=== PATIENT | male | born 1970 | race Caucasian/White ===

== ENCOUNTER 2021-03-14 19:13 | Inpatient (IN) | payer OTHER ==
[2021-03-14] MEDS ORDERED: ASPIRIN 81 MG CHEWABLE TABLETS ONE (20:08)
[2021-03-14 20:10] LABS: BASO % 0.3 % (0-2.0); HEMATOCRIT 38.7 % (35.4-49); HEMOGLOBIN 12.7 GM/dL (11.7-16.9); LYMPH % 12.7 % (8-40); MCH 27.3 pg (25.7-33.7); MCHC 32.8 g/dl (32.0-35.9); MEAN CELL VOLUME 83.2 fl (80-96); MEAN PLT VOLUME 8.2 fl (7.5-11.1); MONO % 8.5 % (3.8-10.2); NEUT % 78.5 % (42.8-82.8); PLATELET COUNT 140 10^3/uL (134-434); RBC 4.65 M/mm3 (4.00-5.60); WHITE BLOOD COUNT 11.2 K/mm3 (4.0-10.0)
[2021-03-14 20:17] LABS: VENOUS BASE EXCESS -4.4 mmol/L (-2-2); VENOUS O2 SATURATION 46.6 % (70-80); VENOUS PCO2 31.5 mmHg (38-52); VENOUS PH 7.403 (7.310-7.410)
[2021-03-14 20:18] LABS: INR 2.52 (0.83-1.09); PROTHROMBIN TIME (PATIENT) 30.8 SEC (9.7-13.0)
[2021-03-14 20:21] LABS: ACTIVATED PTT 30.5 SECONDS (25.2-36.5)
[2021-03-14] MEDS ORDERED: NOREPINEPHRINE D5W PREMIX 16,000 MCG/500 ML BAG IVPB SCH (20:30)
[2021-03-14 20:31] LABS: ALBUMIN 2.6 g/dl (3.4-5.0); BLOOD UREA NITROGEN 28.8 mg/dL (7-18); CALCIUM 8.1 mg/dL (8.5-10.1)
[2021-03-14 20:35] LABS: CREATININE 1.5 mg/dL (0.55-1.3)
[2021-03-14 20:36] LABS: BILIRUBIN,TOTAL 4.4 mg/dL (0.2-1); TOT PROT 6.9 g/dl (6.4-8.2)
[2021-03-14 20:39] LABS: N-TERMINAL BNP 8496.6 pg/ml (5-125)
[2021-03-14] MEDS ORDERED: ASPIRIN 81 MG CHEWABLE TABLETS PO ONE (20:55)
[2021-03-14] MEDS ORDERED: clonazePAM 0.5 MG TABLET PO ONE (22:22)
[2021-03-14] MEDS ORDERED: clonazePAM 0.5 MG TABLET ONE (23:14)
[2021-03-15] MEDS ORDERED: FUROSEMIDE 40 MG/4 ML INJECTABLE VIAL IVPUSH ONE (00:32)
[2021-03-15] MEDS ORDERED: SODIUM CHLORIDE 500 ML IV STA (00:37)
[2021-03-15] MEDS ORDERED: PNEUMOC 13-VAL CONJ-DIP CRM/PF 0.5 ML DISP.SYRIN IM ONE (04:49)
[2021-03-15] MEDS: HEPARIN NA (PORCINE) 5,000 UNITS/ML 1ML VIAL SQ SCH ×3 (06:54→21:36)
[2021-03-15 07:02] LABS: BASO % 0.2 % (0-2.0); EOS % 0.1 % (0-4.5); HEMATOCRIT 33.2 % (35.4-49); LYMPH % 11.4 % (8-40); MCH 27.8 pg (25.7-33.7); MCHC 33.3 g/dl (32.0-35.9); MEAN CELL VOLUME 83.5 fl (80-96); MEAN PLT VOLUME 8.3 fl (7.5-11.1); MONO % 4.5 % (3.8-10.2); NEUT % 83.8 % (42.8-82.8); PLATELET COUNT 111 10^3/uL (134-434); RBC 3.97 M/mm3 (4.00-5.60); RDW 18.1 % (11.9-15.9); WHITE BLOOD COUNT 6.7 K/mm3 (4.0-10.0)
[2021-03-15 07:12] LABS: ALBUMIN 2.2 g/dl (3.4-5.0); CALCIUM 7.6 mg/dL (8.5-10.1)
[2021-03-15 07:13] LABS: BLOOD UREA NITROGEN 34.2 mg/dL (7-18); MAGNESIUM 1.6 mg/dL (1.8-2.4)
[2021-03-15 07:15] LABS: CREATININE 1.3 mg/dL (0.55-1.3)
[2021-03-15 07:16] LABS: BILIRUBIN,TOTAL 3.8 mg/dL (0.2-1); TOT PROT 5.8 g/dl (6.4-8.2)
[2021-03-15 07:31] LABS: INR 2.45 (0.83-1.09); PROTHROMBIN TIME (PATIENT) 29.9 SEC (9.7-13.0)
[2021-03-15] MEDS: ASPIRIN 81 MG CHEWABLE TABLETS PO SCH (09:44)
[2021-03-15] MEDS ORDERED: FLU VACC QS2021-22(6MOS UP)/PF 60 MCG/0.5 ML SYRINGE IM ONE (10:00)
[2021-03-15] MEDS ORDERED: PNEUMOCOCCAL 23 VACCINE 0.5 ML VIAL IM ONE (10:00)
[2021-03-15] MEDS: LORazepam 1 MG TABLET PO PRN (11:33)
[2021-03-15] MEDS ORDERED: IBUPROFEN 400 MG TABLET (FP) PO PRN (11:39)
[2021-03-15] MEDS ORDERED: PT OWN MED DRAWER 7, Y5N ONE ×3 (11:44→15:27)
[2021-03-15] MEDS: MUPIROCIN 2% TOPICAL OINTMENT FOR DECOLONIZATION NS SCH ×2 (11:59→21:36)
[2021-03-15] MEDS ORDERED: MAGNESIUM OXIDE 400 MG TABLET (FP) PO ONE (12:15)
[2021-03-15] MEDS ORDERED: PHYTONADIONE 5 MG TABLET PO ONE (12:26)
[2021-03-15] MEDS ORDERED: LORazepam 1 MG TABLET PO PRN (12:47)
[2021-03-15] MEDS: FUROSEMIDE 40 MG/4 ML INJECTABLE VIAL IVPUSH SCH (13:55)
[2021-03-15] MEDS ORDERED: FUROSEMIDE 40 MG/4 ML INJECTABLE VIAL IVPUSH SCH (14:00)
[2021-03-15] MEDS: LORazepam 1 MG TABLET PO SCH ×2 (16:42→22:42)
[2021-03-15 17:22] LABS: METHADONE, UR NEGATIVE (NEGATIVE); OPIATES, URI NEGATIVE (NEGATIVE); URINE BARBITURATES NEGATIVE (NEGATIVE); URINE BENZODIAZEPINES NEGATIVE (NEGATIVE)
[2021-03-15 17:23] LABS: PHENCYCLIDINE,URINE NEGATIVE (NEGATIVE)
[2021-03-15 17:25] LABS: COCAINE, UR POSITIVE (NEGATIVE); URINE AMPHETAMINES NEGATIVE (NEGATIVE)
[2021-03-15 17:42] LABS: EPI CELLS 11 /uL (0-25.1); HYALINE CASTS 41 /uL (0-3.1); URINE APPEARANCE CLEAR; URINE BACTERIA 7 /uL (0-1359); URINE BILIRUBIN 1+ (NEGATIVE); URINE COLOR DK YELLOW; URINE GLUCOSE (UA) NEGATIVE (NEGATIVE); URINE KETONE NEGATIVE (NEGATIVE); URINE LEUK ESTERASE NEGATIVE (NEGATIVE); URINE NITRITE NEGATIVE (NEGATIVE); URINE PROTEIN 1+ (NEGATIVE); URINE RBC 14 /uL (0-23.9); URINE WBC 18 /uL (0-25.8)
[2021-03-15] MEDS ORDERED: CHLORHEXIDINE GLUCONATE 4% CLEANSER FOR DECOLONIZATION TP SCH (22:00)
[2021-03-16] MEDS: LORazepam 1 MG TABLET PO SCH ×4 (04:31→22:43)
[2021-03-16] MEDS: FUROSEMIDE 40 MG/4 ML INJECTABLE VIAL IVPUSH SCH ×3 (05:03→16:05)
[2021-03-16] MEDS: HEPARIN NA (PORCINE) 5,000 UNITS/ML 1ML VIAL SQ SCH ×4 (05:03→21:24)
[2021-03-16 06:49] LABS: BASO % 0.5 % (0-2.0); EOS % 0.9 % (0-4.5); HEMATOCRIT 36.4 % (35.4-49); LYMPH % 12.9 % (8-40); MCH 27.3 pg (25.7-33.7); MCHC 32.9 g/dl (32.0-35.9); MEAN CELL VOLUME 82.8 fl (80-96); MEAN PLT VOLUME 8.5 fl (7.5-11.1); MONO % 6.4 % (3.8-10.2); NEUT % 79.3 % (42.8-82.8); PLATELET COUNT 148 10^3/uL (134-434); RDW 18.2 % (11.9-15.9)
[2021-03-16 07:01] LABS: INR 2.06 (0.83-1.09); PROTHROMBIN TIME (PATIENT) 25.1 SEC (9.7-13.0)
[2021-03-16 07:09] LABS: ALBUMIN 2.3 g/dl (3.4-5.0); CALCIUM 7.6 mg/dL (8.5-10.1)
[2021-03-16 07:10] LABS: BLOOD UREA NITROGEN 41.1 mg/dL (7-18); MAGNESIUM 1.9 mg/dL (1.8-2.4)
[2021-03-16 07:11] LABS: PHOSPHOROUS 2.9 mg/dL (2.5-4.9)
[2021-03-16 07:12] LABS: CREATININE 1.2 mg/dL (0.55-1.3)
[2021-03-16 07:13] LABS: BILIRUBIN,TOTAL 3.2 mg/dL (0.2-1); TOT PROT 6.3 g/dl (6.4-8.2)
[2021-03-16] MEDS: LORazepam 1 MG TABLET PO PRN (08:28)
[2021-03-16] MEDS: ASPIRIN 81 MG CHEWABLE TABLETS PO SCH (09:36)
[2021-03-16] MEDS: MUPIROCIN 2% TOPICAL OINTMENT FOR DECOLONIZATION NS SCH (09:39)
[2021-03-16] MEDS ORDERED: CARVEDILOL 6.25 MG TABLET (FP) PO SCH (12:00)
[2021-03-16] MEDS ORDERED: SPIRONOLACTONE 25 MG TABLET PO SCH (12:00)
[2021-03-16] MEDS ORDERED: PHYTONADIONE 5 MG TABLET PO SCH (12:15)
[2021-03-16] MEDS ORDERED: PT OWN MED DRAWER 7, Y5N ONE (13:36)
[2021-03-16] MEDS ORDERED: LORazepam 1 MG TABLET PO PRN (13:54)
[2021-03-16] MEDS ORDERED: IBUPROFEN 400 MG TABLET (FP) PO PRN (13:54)
[2021-03-16] MEDS: CARVEDILOL 6.25 MG TABLET (FP) PO SCH (21:24)
[2021-03-17] MEDS: LORazepam 1 MG TABLET PO PRN (03:25)
[2021-03-17] MEDS ORDERED: LORazepam 1 MG TABLET PO SCH (05:00)
[2021-03-17] MEDS: LORazepam 1 MG TABLET PO SCH ×4 (05:13→22:04)
[2021-03-17] MEDS: FUROSEMIDE 40 MG/4 ML INJECTABLE VIAL IVPUSH SCH ×2 (06:09→15:03)
[2021-03-17] MEDS: HEPARIN NA (PORCINE) 5,000 UNITS/ML 1ML VIAL SQ SCH ×3 (06:09→22:04)
[2021-03-17 08:08] LABS: BASO % 0.5 % (0-2.0); EOS % 1.2 % (0-4.5); HEMATOCRIT 34.8 % (35.4-49); HEMOGLOBIN 11.5 GM/dL (11.7-16.9); LYMPH % 22.1 % (8-40); MCHC 33.1 g/dl (32.0-35.9); MEAN CELL VOLUME 81.7 fl (80-96); MONO % 7.7 % (3.8-10.2); NEUT % 68.5 % (42.8-82.8); PLATELET COUNT 141 10^3/uL (134-434); RBC 4.26 M/mm3 (4.00-5.60); RDW 18.2 % (11.9-15.9)
[2021-03-17 08:54] LABS: ALBUMIN 2.3 g/dl (3.4-5.0)
[2021-03-17 08:55] LABS: CALCIUM 7.8 mg/dL (8.5-10.1)
[2021-03-17 08:56] LABS: BLOOD UREA NITROGEN 32.9 mg/dL (7-18); MAGNESIUM 1.7 mg/dL (1.8-2.4)
[2021-03-17 08:59] LABS: CREATININE 0.9 mg/dL (0.55-1.3); PHOSPHOROUS 3.4 mg/dL (2.5-4.9)
[2021-03-17 09:00] LABS: BILIRUBIN,TOTAL 2.6 mg/dL (0.2-1); TOT PROT 6.1 g/dl (6.4-8.2)
[2021-03-17] MEDS ORDERED: POTASSIUM CHLORIDE TABS 20 MEQ TABLET.ER (FP) PO ONE (09:00)
[2021-03-17] MEDS ORDERED: SPIRONOLACTONE 25 MG TABLET PO SCH (10:00)
[2021-03-17] MEDS ORDERED: PHYTONADIONE 5 MG TABLET PO SCH (10:00)
[2021-03-17] MEDS: ASPIRIN 81 MG CHEWABLE TABLETS PO SCH (11:10)
[2021-03-17] MEDS ORDERED: MAGNESIUM SULF 50% (8.12 MEQ/2 ML-1 GM VIAL) IVPB ONE (11:23)
[2021-03-17] MEDS ORDERED: IRON SUCROSE INJECTION 200 MG in SODIUM CHLORIDE 90 ML IVPB ONE (13:00)
[2021-03-17] MEDS ORDERED: FUROSEMIDE 40 MG/4 ML INJECTABLE VIAL IVPUSH SCH (13:38)
[2021-03-17] MEDS: CARVEDILOL 6.25 MG TABLET (FP) PO SCH ×2 (13:39→22:04)
[2021-03-17] MEDS: LISINOPRIL 5 MG TABLET PO SCH (17:12)
[2021-03-18] MEDS ORDERED: LORazepam 0.5 MG TABLET PO PRN ×2
[2021-03-18] MEDS ORDERED: LORazepam 0.5 MG TABLET PO SCH (05:00)
[2021-03-18] MEDS: LORazepam 0.5 MG TABLET PO SCH ×4 (05:25→22:01)
[2021-03-18] MEDS: FUROSEMIDE 40 MG/4 ML INJECTABLE VIAL IVPUSH SCH ×2 (05:25→16:57)
[2021-03-18] MEDS: HEPARIN NA (PORCINE) 5,000 UNITS/ML 1ML VIAL SQ SCH ×3 (05:26→22:01)
[2021-03-18 08:16] LABS: BASO % 0.7 % (0-2.0); EOS % 1.2 % (0-4.5); HEMATOCRIT 34.7 % (35.4-49); HEMOGLOBIN 11.4 GM/dL (11.7-16.9); LYMPH % 26.7 % (8-40); MCH 26.9 pg (25.7-33.7); MEAN CELL VOLUME 81.5 fl (80-96); NEUT % 62.4 % (42.8-82.8); PLATELET COUNT 161 10^3/uL (134-434); RBC 4.26 M/mm3 (4.00-5.60); RDW 17.8 % (11.9-15.9)
[2021-03-18 08:30] LABS: ALBUMIN 2.6 g/dl (3.4-5.0); BLOOD UREA NITROGEN 27.9 mg/dL (7-18)
[2021-03-18 08:31] LABS: CALCIUM 8.2 mg/dL (8.5-10.1); MAGNESIUM 2.2 mg/dL (1.8-2.4)
[2021-03-18 08:33] LABS: CREATININE 0.8 mg/dL (0.55-1.3); PHOSPHOROUS 2.9 mg/dL (2.5-4.9)
[2021-03-18 08:34] LABS: BILIRUBIN,TOTAL 2.8 mg/dL (0.2-1)
[2021-03-18 08:35] LABS: TOT PROT 6.4 g/dl (6.4-8.2)
[2021-03-18] MEDS: ASPIRIN 81 MG CHEWABLE TABLETS PO SCH (09:57)
[2021-03-18] MEDS: CARVEDILOL 6.25 MG TABLET (FP) PO SCH ×2 (09:58→23:26)
[2021-03-18] MEDS: SPIRONOLACTONE 25 MG TABLET PO SCH (09:58)
[2021-03-18] MEDS: LISINOPRIL 5 MG TABLET PO SCH (09:59)
[2021-03-19] MEDS ORDERED: LORazepam 0.5 MG TABLET PO ONE ×3 (02:03→05:00)
[2021-03-19] MEDS: HEPARIN NA (PORCINE) 5,000 UNITS/ML 1ML VIAL SQ SCH ×3 (05:56→21:11)
[2021-03-19] MEDS: FUROSEMIDE 40 MG/4 ML INJECTABLE VIAL IVPUSH SCH ×2 (06:51→08:26)
[2021-03-19 08:21] LABS: BASO % 1.2 % (0-2.0); EOS % 1.5 % (0-4.5); HEMATOCRIT 37.3 % (35.4-49); HEMOGLOBIN 12.2 GM/dL (11.7-16.9); LYMPH % 31.8 % (8-40); MCH 27.1 pg (25.7-33.7); MCHC 32.7 g/dl (32.0-35.9); MEAN CELL VOLUME 82.7 fl (80-96); MEAN PLT VOLUME 8.1 fl (7.5-11.1); MONO % 8.2 % (3.8-10.2); NEUT % 57.3 % (42.8-82.8); PLATELET COUNT 199 10^3/uL (134-434); RBC 4.51 M/mm3 (4.00-5.60); RDW 18.4 % (11.9-15.9); WHITE BLOOD COUNT 6.8 K/mm3 (4.0-10.0)
[2021-03-19 08:24] LABS: INR 1.71 (0.83-1.09); PROTHROMBIN TIME (PATIENT) 19.2 SEC (9.7-13.0)
[2021-03-19 08:45] LABS: CALCIUM 8.1 mg/dL (8.5-10.1)
[2021-03-19 08:46] LABS: ALBUMIN 2.5 g/dl (3.4-5.0); BLOOD UREA NITROGEN 22.9 mg/dL (7-18); MAGNESIUM 1.9 mg/dL (1.8-2.4)
[2021-03-19 08:49] LABS: CREATININE 0.9 mg/dL (0.55-1.3); PHOSPHOROUS 2.8 mg/dL (2.5-4.9)
[2021-03-19 08:50] LABS: BILIRUBIN,TOTAL 2.6 mg/dL (0.2-1); TOT PROT 6.6 g/dl (6.4-8.2)
[2021-03-19] MEDS: ASPIRIN 81 MG CHEWABLE TABLETS PO SCH (09:44)
[2021-03-19] MEDS: LISINOPRIL 5 MG TABLET PO SCH (09:44)
[2021-03-19] MEDS: CARVEDILOL 6.25 MG TABLET (FP) PO SCH ×2 (09:44→21:11)
[2021-03-19] MEDS: SPIRONOLACTONE 25 MG TABLET PO SCH (09:44)
[2021-03-19] MEDS ORDERED: FUROSEMIDE 40 MG/4 ML INJECTABLE VIAL IVPUSH SCH (14:00)
[2021-03-19] MEDS: LORazepam 1 MG TABLET PO PRN (21:11)
[2021-03-19] MEDS: MELATONIN 5 MG TABLETS PO PRN (21:13)
[2021-03-20] MEDS ORDERED: FUROSEMIDE 20 MG TABLET (FP) PO SCH ×2 (06:00→10:00)
[2021-03-20] MEDS: HEPARIN NA (PORCINE) 5,000 UNITS/ML 1ML VIAL SQ SCH ×3 (06:21→21:03)
[2021-03-20 09:39] LABS: BASO % 0.9 % (0-2.0); HEMATOCRIT 35.8 % (35.4-49); HEMOGLOBIN 11.7 GM/dL (11.7-16.9); LYMPH % 32.4 % (8-40); MCHC 32.7 g/dl (32.0-35.9); MEAN CELL VOLUME 82.4 fl (80-96); MONO % 6.2 % (3.8-10.2); NEUT % 59.5 % (42.8-82.8); PLATELET COUNT 229 10^3/uL (134-434); RBC 4.34 M/mm3 (4.00-5.60); RDW 18.3 % (11.9-15.9); WHITE BLOOD COUNT 6.3 K/mm3 (4.0-10.0)
[2021-03-20 09:41] LABS: ALBUMIN 2.6 g/dl (3.4-5.0); BLOOD UREA NITROGEN 28.5 mg/dL (7-18); CALCIUM 8.5 mg/dL (8.5-10.1)
[2021-03-20 09:42] LABS: MAGNESIUM 1.8 mg/dL (1.8-2.4)
[2021-03-20] MEDS: SPIRONOLACTONE 25 MG TABLET PO SCH (09:43)
[2021-03-20] MEDS: LISINOPRIL 5 MG TABLET PO SCH (09:43)
[2021-03-20 09:44] LABS: CREATININE 1.1 mg/dL (0.55-1.3); PHOSPHOROUS 3.8 mg/dL (2.5-4.9)
[2021-03-20] MEDS: CARVEDILOL 6.25 MG TABLET (FP) PO SCH ×2 (09:44→21:03)
[2021-03-20] MEDS: ASPIRIN 81 MG CHEWABLE TABLETS PO SCH (09:44)
[2021-03-20 09:45] LABS: BILIRUBIN,TOTAL 2.6 mg/dL (0.2-1); TOT PROT 6.8 g/dl (6.4-8.2)
[2021-03-20 09:49] LABS: N-TERMINAL BNP 2046.4 pg/ml (5-125)
[2021-03-20] MEDS ORDERED: LISINOPRIL 5 MG TABLET PO SCH (10:00)
[2021-03-20] MEDS ORDERED: MAGNESIUM SULF 50% (8.12 MEQ/2 ML-1 GM VIAL) IVPB ONE (13:16)
[2021-03-20] MEDS: FUROSEMIDE 40 MG/4 ML INJECTABLE VIAL IVPUSH SCH (14:44)
[2021-03-20] MEDS ORDERED: LORazepam 0.5 MG TABLET PO ONE (19:59)
[2021-03-20] MEDS: MELATONIN 5 MG TABLETS PO PRN (21:03)
[2021-03-21] MEDS: HEPARIN NA (PORCINE) 5,000 UNITS/ML 1ML VIAL SQ SCH ×3 (05:57→21:04)
[2021-03-21] MEDS: FUROSEMIDE 40 MG/4 ML INJECTABLE VIAL IVPUSH SCH (05:57)
[2021-03-21 09:17] LABS: BASO % 1.3 % (0-2.0); EOS % 0.9 % (0-4.5); HEMATOCRIT 37.1 % (35.4-49); LYMPH % 35.5 % (8-40); MCH 26.9 pg (25.7-33.7); MCHC 32.4 g/dl (32.0-35.9); MEAN CELL VOLUME 82.8 fl (80-96); MEAN PLT VOLUME 8.3 fl (7.5-11.1); MONO % 10.8 % (3.8-10.2); NEUT % 51.5 % (42.8-82.8); PLATELET COUNT 235 10^3/uL (134-434); RBC 4.48 M/mm3 (4.00-5.60); RDW 18.9 % (11.9-15.9); WHITE BLOOD COUNT 6.2 K/mm3 (4.0-10.0)
[2021-03-21] MEDS: CARVEDILOL 6.25 MG TABLET (FP) PO SCH ×2 (09:19→21:04)
[2021-03-21] MEDS: SPIRONOLACTONE 25 MG TABLET PO SCH (09:19)
[2021-03-21] MEDS: ASPIRIN 81 MG CHEWABLE TABLETS PO SCH (09:19)
[2021-03-21] MEDS: LISINOPRIL 5 MG TABLET PO SCH (09:20)
[2021-03-21 10:11] LABS: ALBUMIN 2.7 g/dl (3.4-5.0); BILIRUBIN,TOTAL 2.3 mg/dL (0.2-1); BLOOD UREA NITROGEN 30.7 mg/dL (7-18); CALCIUM 8.4 mg/dL (8.5-10.1); CREATININE 1.3 mg/dL (0.55-1.3); MAGNESIUM 2.2 mg/dL (1.8-2.4); PHOSPHOROUS 4.3 mg/dL (2.5-4.9)
[2021-03-21] MEDS: MELATONIN 5 MG TABLETS PO PRN (20:49)
[2021-03-21] MEDS ORDERED: MELATONIN 5 MG TABLETS PO ONE (22:09)
[2021-03-21] MEDS: diphenhydrAMINE HCL 25 MG CAPSULE (FP) PO ONE ×2 (22:50→23:09)
[2021-03-22] MEDS: HEPARIN NA (PORCINE) 5,000 UNITS/ML 1ML VIAL SQ SCH ×3 (06:05→21:41)
[2021-03-22 08:43] LABS: HEMATOCRIT 34.3 % (35.4-49); HEMOGLOBIN 11.6 GM/dL (11.7-16.9); MCH 27.5 pg (25.7-33.7); MCHC 33.8 g/dl (32.0-35.9); MEAN CELL VOLUME 81.4 fl (80-96); MEAN PLT VOLUME 8.2 fl (7.5-11.1); PLATELET COUNT 242 10^3/uL (134-434); RBC 4.22 M/mm3 (4.00-5.60); RDW 18.4 % (11.9-15.9); WHITE BLOOD COUNT 6.3 K/mm3 (4.0-10.0)
[2021-03-22 09:18] LABS: CALCIUM 8.1 mg/dL (8.5-10.1)
[2021-03-22 09:20] LABS: ALBUMIN 2.7 g/dl (3.4-5.0); BLOOD UREA NITROGEN 34.5 mg/dL (7-18); MAGNESIUM 2.2 mg/dL (1.8-2.4)
[2021-03-22 09:23] LABS: BILIRUBIN,TOTAL 2.4 mg/dL (0.2-1); CREATININE 1.3 mg/dL (0.55-1.3); TOT PROT 6.9 g/dl (6.4-8.2)
[2021-03-22] MEDS: ASPIRIN 81 MG CHEWABLE TABLETS PO SCH (09:35)
[2021-03-22] MEDS: SPIRONOLACTONE 25 MG TABLET PO SCH (09:40)
[2021-03-22] MEDS ORDERED: FUROSEMIDE 40 MG/4 ML INJECTABLE VIAL IVPUSH SCH (10:00)
[2021-03-22] MEDS: CARVEDILOL 6.25 MG TABLET (FP) PO SCH ×2 (12:07→21:41)
[2021-03-22] MEDS: LISINOPRIL 5 MG TABLET PO SCH (12:08)
[2021-03-22 12:26] VITALS: BMI 32.1
[2021-03-22] MEDS ORDERED: clonazePAM 0.5 MG TABLET PO ONE (14:36)
[2021-03-22] MEDS: clonazePAM 0.5 MG TABLET PO PRN (15:02)
[2021-03-22] MEDS: FUROSEMIDE 20 MG TABLET (FP) PO SCH (16:27)
[2021-03-23] MEDS: clonazePAM 0.5 MG TABLET PO PRN ×2 (01:35→13:06)
[2021-03-23] MEDS: HEPARIN NA (PORCINE) 5,000 UNITS/ML 1ML VIAL SQ SCH (07:05)
[2021-03-23 09:23] LABS: HEMATOCRIT 35.4 % (35.4-49); HEMOGLOBIN 11.7 GM/dL (11.7-16.9); MCH 27.3 pg (25.7-33.7); MCHC 33.1 g/dl (32.0-35.9); MEAN CELL VOLUME 82.3 fl (80-96); MEAN PLT VOLUME 8.3 fl (7.5-11.1); PLATELET COUNT 223 10^3/uL (134-434); RDW 18.5 % (11.9-15.9); WHITE BLOOD COUNT 5.8 K/mm3 (4.0-10.0)
[2021-03-23 10:08] LABS: CALCIUM 8.6 mg/dL (8.5-10.1)
[2021-03-23 10:09] LABS: ALBUMIN 2.5 g/dl (3.4-5.0)
[2021-03-23 10:12] LABS: CREATININE 1.1 mg/dL (0.55-1.3)
[2021-03-23 10:13] LABS: TOT PROT 6.7 g/dl (6.4-8.2)
[2021-03-23] MEDS: LISINOPRIL 5 MG TABLET PO SCH (10:28)
[2021-03-23] MEDS: SPIRONOLACTONE 25 MG TABLET PO SCH (10:28)
[2021-03-23] MEDS: ASPIRIN 81 MG CHEWABLE TABLETS PO SCH (10:30)
[2021-03-23] MEDS: FUROSEMIDE 20 MG TABLET (FP) PO SCH (10:31)
[2021-03-23] MEDS: CARVEDILOL 6.25 MG TABLET (FP) PO SCH (10:31)
[2021-03-23 15:32] VITALS: BP 91/64; PULSE 85; TEMP 98
== END 2021-03-23 18:47 | disposition other institution (70) | DRG 291 ==
LOC: JER 19:13 → JERBED 03-15 01:53 → JICU 03-15 03:58 → J5S 03-16 13:59
PROVIDERS: ADMIT Internal Medicine; ATTEND Internal Medicine
DX: I50.23 Acute on chronic systolic (congestive) heart failure (principal); K72.00 Acute and subacute hepatic failure without coma; R57.0 Cardiogenic shock; N17.9 Acute kidney failure, unspecified; R18.8 Other ascites; J90 Pleural effusion, not elsewhere classified; F10.239 Alcohol dependence with withdrawal, unspecified; I42.0 Dilated cardiomyopathy; D68.9 Coagulation defect, unspecified; F10.229 Alcohol dependence with intoxication, unspecified; R00.0 Tachycardia, unspecified; I95.9 Hypotension, unspecified; R74.01 Elevation of levels of liver transaminase levels; D69.6 Thrombocytopenia, unspecified; I27.20 Pulmonary hypertension, unspecified; E66.9 Obesity, unspecified; Z68.32 Body mass index [BMI] 32.0-32.9, adult; F14.10 Cocaine abuse, uncomplicated; F12.10 Cannabis abuse, uncomplicated; F19.19 Other psychoactive substance abuse with unspecified psychoactive substance-induced disorder; F32.9 Major depressive disorder, single episode, unspecified
CPT/HCPCS: 36415; 71045-TC-FY; 71046-TC-FY; 71275-TC; 76700-TC; 76856-TC; 80053; 80307; 81003; 82140; 82436; 82550; 82553; 82570; 82803; 82962; 83036; 83540; 83550; 83690; 83735; 83880; 84100; 84300; 84443; 84484; 85025; 85027; 85379; 85610; 85730; 86705; 86706; 86707; 86708; 87077; 87086; 87340; 87350; 87517; 87522; 87804; 87807; 90686; 90732; 93005; 93010; 93306-TC; 93970-TC; 94660; 97116-GP; 97161-GP; 99285-25; C9803; G0008; G0009; J1250; J1644; J1756; Q9967; U0003; U0005

== ENCOUNTER 2021-06-14 11:45 | Inpatient (IN) | payer OTHER ==
[2021-06-14] MEDS ORDERED: FUROSEMIDE 40 MG/4 ML INJECTABLE VIAL IVPUSH ONE ×2 (13:40→22:00)
[2021-06-14] MEDS ORDERED: FUROSEMIDE 40 MG/4 ML INJECTABLE VIAL ONE ×2 (13:43→22:01)
[2021-06-14 14:15] LABS: BASO % 1.3 % (0-2.0); EOS % 0.4 % (0-4.5); HEMATOCRIT 35.4 % (35.4-49); HEMOGLOBIN 11.4 GM/dL (11.7-16.9); LYMPH % 18.3 % (8-40); MCH 24.5 pg (25.7-33.7); MCHC 32.2 g/dl (32.0-35.9); MEAN CELL VOLUME 75.9 fl (80-96); PLATELET COUNT 167 10^3/uL (134-434); RBC 4.66 M/mm3 (4.00-5.60); RDW 20.5 % (11.9-15.9); WHITE BLOOD COUNT 6.4 K/mm3 (4.0-10.0)
[2021-06-14 14:46] LABS: CALCIUM 8.8 mg/dL (8.5-10.1)
[2021-06-14 14:47] LABS: BLOOD UREA NITROGEN 24.7 mg/dL (7-18)
[2021-06-14 14:50] LABS: BILIRUBIN,TOTAL 2.3 mg/dL (0.2-1)
[2021-06-14 14:51] LABS: TOT PROT 6.8 g/dl (6.4-8.2)
[2021-06-14 15:44] LABS: ANISOCYTOSIS 2+; PLATELET ESTIMATE ADEQUATE
[2021-06-14] MEDS ORDERED: SPIRONOLACTONE 25 MG TABLET PO SCH ×4 (15:45→18:13)
[2021-06-14] MEDS: HEPARIN NA (PORCINE) 5,000 UNITS/ML 1ML VIAL SQ SCH ×2 (16:10→22:32)
[2021-06-14] MEDS: ASPIRIN 81 MG CHEWABLE TABLETS PO SCH (16:10)
[2021-06-14] MEDS ORDERED: ASPIRIN 81 MG CHEWABLE TABLETS ONE (16:35)
[2021-06-14] MEDS ORDERED: SPIRONOLACTONE 25 MG TABLET ONE (16:36)
[2021-06-14] MEDS ORDERED: HEPARIN NA (PORCINE) 5,000 UNITS/ML 1ML VIAL ONE ×2 (16:36→22:01)
[2021-06-14] MEDS ORDERED: CARVEDILOL 6.25 MG TABLET (FP) PO SCH (22:00)
[2021-06-14] MEDS ORDERED: CARVEDILOL 12.5 MG TABLET (FP) ONE (22:01)
[2021-06-14] MEDS ORDERED: SERTRALINE HCL 50 MG TABLET (FP) ONE (22:01)
[2021-06-14] MEDS: CARVEDILOL 6.25 MG TABLET (FP) PO SCH (22:32)
[2021-06-14] MEDS: SERTRALINE HCL 50 MG TABLET (FP) PO SCH (22:33)
[2021-06-14 23:10] LABS: URINE BENZODIAZEPINES NEGATIVE (NEGATIVE)
[2021-06-14 23:11] LABS: OPIATES, URI NEGATIVE (NEGATIVE); PHENCYCLIDINE,URINE NEGATIVE (NEGATIVE); URINE BARBITURATES NEGATIVE (NEGATIVE)
[2021-06-14 23:14] LABS: COCAINE, UR POSITIVE (NEGATIVE); METHADONE, UR NEGATIVE (NEGATIVE); URINE AMPHETAMINES POSITIVE (NEGATIVE)
[2021-06-15] MEDS ORDERED: SODIUM CHLORIDE 500 ML IV STA (05:52)
[2021-06-15] MEDS ORDERED: HEPARIN NA (PORCINE) 5,000 UNITS/ML 1ML VIAL ONE ×2 (06:01→15:00)
[2021-06-15] MEDS: HEPARIN NA (PORCINE) 5,000 UNITS/ML 1ML VIAL SQ SCH ×3 (06:06→22:19)
[2021-06-15 07:43] LABS: BASO % 0.4 % (0-2.0); EOS % 0.2 % (0-4.5); HEMATOCRIT 34.3 % (35.4-49); HEMOGLOBIN 11.2 GM/dL (11.7-16.9); LYMPH % 9.9 % (8-40); MCH 24.9 pg (25.7-33.7); MCHC 32.7 g/dl (32.0-35.9); MEAN CELL VOLUME 76.1 fl (80-96); MEAN PLT VOLUME 8.2 fl (7.5-11.1); MONO % 6.7 % (3.8-10.2); NEUT % 82.8 % (42.8-82.8); PLATELET COUNT 137 10^3/uL (134-434); RBC 4.51 M/mm3 (4.00-5.60); RDW 21.1 % (11.9-15.9); WHITE BLOOD COUNT 6.4 K/mm3 (4.0-10.0)
[2021-06-15 08:14] LABS: ALBUMIN 2.8 g/dl (3.4-5.0); MAGNESIUM 1.8 mg/dL (1.8-2.4)
[2021-06-15 08:15] LABS: CALCIUM 8.7 mg/dL (8.5-10.1)
[2021-06-15 08:16] LABS: BLOOD UREA NITROGEN 28.3 mg/dL (7-18)
[2021-06-15 08:17] LABS: CREATININE 1.7 mg/dL (0.55-1.3)
[2021-06-15 08:18] LABS: TOT PROT 6.5 g/dl (6.4-8.2)
[2021-06-15 08:19] LABS: PHOSPHOROUS 3.7 mg/dL (2.5-4.9)
[2021-06-15 08:21] LABS: BILIRUBIN,TOTAL 4.2 mg/dL (0.2-1)
[2021-06-15] MEDS ORDERED: LISINOPRIL 5 MG TABLET PO SCH (10:00)
[2021-06-15] MEDS ORDERED: THIAMINE HCL 100 MG TABLET (FP) ONE (10:48)
[2021-06-15] MEDS ORDERED: MULTIVITAMINS (DAILY MVI) TABLET (FP) ONE (10:48)
[2021-06-15] MEDS ORDERED: ASPIRIN 81 MG CHEWABLE TABLETS ONE (10:48)
[2021-06-15] MEDS ORDERED: FERROUS SO4 325 MG TABLET (FP) ONE (10:48)
[2021-06-15] MEDS ORDERED: SERTRALINE HCL 50 MG TABLET (FP) ONE (10:48)
[2021-06-15] MEDS ORDERED: FOLIC ACID 1 MG TABLET (FP) ONE (10:48)
[2021-06-15] MEDS: FOLIC ACID 1 MG TABLET (FP) PO SCH (10:56)
[2021-06-15] MEDS: ASPIRIN 81 MG CHEWABLE TABLETS PO SCH (10:56)
[2021-06-15] MEDS: FERROUS SO4 325 MG TABLET (FP) PO SCH (10:56)
[2021-06-15] MEDS: MULTIVITAMINS (DAILY MVI) TABLET (FP) PO SCH (10:56)
[2021-06-15] MEDS: THIAMINE HCL 100 MG TABLET (FP) PO SCH (10:56)
[2021-06-15] MEDS: SERTRALINE HCL 50 MG TABLET (FP) PO SCH ×2 (10:57→22:19)
[2021-06-15] MEDS: CARVEDILOL 6.25 MG TABLET (FP) PO SCH ×2 (11:02→22:20)
[2021-06-15] MEDS: FUROSEMIDE 40 MG/4 ML INJECTABLE VIAL IVPUSH SCH ×3 (11:30→16:35)
[2021-06-15] MEDS ORDERED: FUROSEMIDE 40 MG/4 ML INJECTABLE VIAL ONE (16:23)
[2021-06-15 22:28] VITALS: BMI 31.1
[2021-06-16] MEDS: HEPARIN NA (PORCINE) 5,000 UNITS/ML 1ML VIAL SQ SCH ×3 (05:48→21:40)
[2021-06-16 08:18] LABS: HEMATOCRIT 33.4 % (35.4-49); HEMOGLOBIN 10.5 GM/dL (11.7-16.9); MCH 24.1 pg (25.7-33.7); MCHC 31.4 g/dl (32.0-35.9); MEAN CELL VOLUME 76.8 fl (80-96); MEAN PLT VOLUME 8.5 fl (7.5-11.1); PLATELET COUNT 126 10^3/uL (134-434); RBC 4.35 M/mm3 (4.00-5.60); RDW 21.4 % (11.9-15.9); WHITE BLOOD COUNT 5.1 K/mm3 (4.0-10.0)
[2021-06-16 08:44] LABS: CALCIUM 8.1 mg/dL (8.5-10.1)
[2021-06-16 08:45] LABS: ALBUMIN 2.6 g/dl (3.4-5.0); BLOOD UREA NITROGEN 41.3 mg/dL (7-18); MAGNESIUM 1.9 mg/dL (1.8-2.4)
[2021-06-16 08:47] LABS: PHOSPHOROUS 3.6 mg/dL (2.5-4.9)
[2021-06-16 08:48] LABS: CREATININE 2.4 mg/dL (0.55-1.3)
[2021-06-16 08:49] LABS: BILIRUBIN,TOTAL 2.9 mg/dL (0.2-1)
[2021-06-16] MEDS ORDERED: MAGNESIUM CL 64 MG TABLET.SA PO ONE (09:05)
[2021-06-16] MEDS ORDERED: POTASSIUM CHLORIDE TABS 20 MEQ TABLET.ER (FP) PO ONE (09:30)
[2021-06-16] MEDS: CARVEDILOL 6.25 MG TABLET (FP) PO SCH ×2 (11:01→21:39)
[2021-06-16] MEDS: THIAMINE HCL 100 MG TABLET (FP) PO SCH (11:02)
[2021-06-16] MEDS: SERTRALINE HCL 50 MG TABLET (FP) PO SCH ×2 (11:02→21:39)
[2021-06-16] MEDS: FUROSEMIDE 40 MG/4 ML INJECTABLE VIAL IVPUSH SCH (11:02)
[2021-06-16] MEDS: MULTIVITAMINS (DAILY MVI) TABLET (FP) PO SCH (11:03)
[2021-06-16] MEDS: FERROUS SO4 325 MG TABLET (FP) PO SCH (11:03)
[2021-06-16] MEDS: ASPIRIN 81 MG CHEWABLE TABLETS PO SCH (11:03)
[2021-06-16] MEDS: FOLIC ACID 1 MG TABLET (FP) PO SCH (11:03)
[2021-06-16] MEDS: POLYETHYLENE GLYCOL (HEALTHYLAX) 3350 17 GM PACKET PO SCH (11:03)
[2021-06-16] MEDS: DOCUSATE SODIUM 100 MG CAPSULE (FP) PO SCH (11:04)
[2021-06-17] MEDS: HEPARIN NA (PORCINE) 5,000 UNITS/ML 1ML VIAL SQ SCH ×3 (05:47→21:55)
[2021-06-17 07:16] LABS: HEMATOCRIT 37.3 % (35.4-49); HEMOGLOBIN 11.4 GM/dL (11.7-16.9); MCH 23.5 pg (25.7-33.7); MCHC 30.6 g/dl (32.0-35.9); MEAN CELL VOLUME 76.7 fl (80-96); PLATELET COUNT 148 10^3/uL (134-434); RBC 4.86 M/mm3 (4.00-5.60); WHITE BLOOD COUNT 7.1 K/mm3 (4.0-10.0)
[2021-06-17 07:44] LABS: MAGNESIUM 2.1 mg/dL (1.8-2.4)
[2021-06-17 07:45] LABS: BLOOD UREA NITROGEN 47.4 mg/dL (7-18)
[2021-06-17 07:48] LABS: CREATININE 2.4 mg/dL (0.55-1.3); PHOSPHOROUS 5.5 mg/dL (2.5-4.9)
[2021-06-17] MEDS: DOCUSATE SODIUM 100 MG CAPSULE (FP) PO SCH (11:36)
[2021-06-17] MEDS: POLYETHYLENE GLYCOL (HEALTHYLAX) 3350 17 GM PACKET PO SCH (11:36)
[2021-06-17] MEDS: FERROUS SO4 325 MG TABLET (FP) PO SCH (11:37)
[2021-06-17] MEDS: ASPIRIN 81 MG CHEWABLE TABLETS PO SCH (11:37)
[2021-06-17] MEDS: SERTRALINE HCL 50 MG TABLET (FP) PO SCH ×2 (11:37→21:54)
[2021-06-17] MEDS: CARVEDILOL 6.25 MG TABLET (FP) PO SCH ×2 (11:37→21:55)
[2021-06-17] MEDS: FOLIC ACID 1 MG TABLET (FP) PO SCH (11:37)
[2021-06-17] MEDS: MULTIVITAMINS (DAILY MVI) TABLET (FP) PO SCH (11:37)
[2021-06-17] MEDS: THIAMINE HCL 100 MG TABLET (FP) PO SCH (11:38)
[2021-06-17] MEDS ORDERED: METOCLOPRAMIDE HCL INJECTION 10 MG/2 ML VIAL IVPUSH PRN (11:41)
[2021-06-17 13:07] LABS: EPI CELLS 9 /uL (0-25.1); HYALINE CASTS 15 /uL (0-3.1); URINE APPEARANCE CLOUDY; URINE BILIRUBIN 2+ (NEGATIVE); URINE COLOR DK YELLOW; URINE GLUCOSE (UA) NEGATIVE (NEGATIVE); URINE KETONE TRACE (NEGATIVE); URINE LEUK ESTERASE TRACE (NEGATIVE); URINE NITRITE POSITIVE (NEGATIVE); URINE PROTEIN 2+ (NEGATIVE); URINE WBC 48 /uL (0-25.8)
[2021-06-17 13:12] LABS: URINE RBC 120.8 /uL (0-23.9)
[2021-06-17] MEDS ORDERED: ONDANSETRON 4 MG/2 ML VIAL IVPUSH PRN (17:19)
[2021-06-18] MEDS: HEPARIN NA (PORCINE) 5,000 UNITS/ML 1ML VIAL SQ SCH ×3 (05:55→21:18)
[2021-06-18 07:04] LABS: HEMATOCRIT 36.3 % (35.4-49); HEMOGLOBIN 11.8 GM/dL (11.7-16.9); MCH 24.7 pg (25.7-33.7); MCHC 32.5 g/dl (32.0-35.9); MEAN CELL VOLUME 76.1 fl (80-96); MEAN PLT VOLUME 8.8 fl (7.5-11.1); PLATELET COUNT 148 10^3/uL (134-434); RBC 4.77 M/mm3 (4.00-5.60); RDW 21.4 % (11.9-15.9); WHITE BLOOD COUNT 7.9 K/mm3 (4.0-10.0)
[2021-06-18 07:15] LABS: INR 2.62 (0.83-1.09); PROTHROMBIN TIME (PATIENT) 30.4 SEC (9.7-13.0)
[2021-06-18 07:19] LABS: ALBUMIN 2.7 g/dl (3.4-5.0); CALCIUM 8.6 mg/dL (8.5-10.1)
[2021-06-18 07:20] LABS: BLOOD UREA NITROGEN 57.4 mg/dL (7-18)
[2021-06-18 07:22] LABS: CREATININE 2.6 mg/dL (0.55-1.3)
[2021-06-18 07:24] LABS: BILIRUBIN,TOTAL 2.4 mg/dL (0.2-1); TOT PROT 6.2 g/dl (6.4-8.2)
[2021-06-18] MEDS ORDERED: DEXTROSE 5%-WATER - 50 ML IVPB ONE (10:07)
[2021-06-18] MEDS ORDERED: cefTRIAXone SODIUM 1 GM VIAL ONE (10:07)
[2021-06-18] MEDS: ASPIRIN 81 MG CHEWABLE TABLETS PO SCH (10:52)
[2021-06-18] MEDS: DOCUSATE SODIUM 100 MG CAPSULE (FP) PO SCH (10:52)
[2021-06-18] MEDS: MULTIVITAMINS (DAILY MVI) TABLET (FP) PO SCH (10:53)
[2021-06-18] MEDS: CEFTRIAXONE 1 GM in DEXTROSE 5%-WATER - 50 ML IVPB SCH (10:53)
[2021-06-18] MEDS: SERTRALINE HCL 50 MG TABLET (FP) PO SCH ×2 (10:53→21:18)
[2021-06-18] MEDS: THIAMINE HCL 100 MG TABLET (FP) PO SCH (10:53)
[2021-06-18] MEDS: FOLIC ACID 1 MG TABLET (FP) PO SCH (10:53)
[2021-06-18] MEDS: POLYETHYLENE GLYCOL (HEALTHYLAX) 3350 17 GM PACKET PO SCH (10:53)
[2021-06-18] MEDS: CARVEDILOL 3.125 MG TABLET (FP) PO SCH ×2 (10:53→21:18)
[2021-06-18] MEDS: FERROUS SO4 325 MG TABLET (FP) PO SCH (10:53)
[2021-06-18] MEDS ORDERED: FUROSEMIDE 40 MG/4 ML INJECTABLE VIAL IVPUSH ONE (19:00)
[2021-06-18] MEDS ORDERED: MAGNESIUM 1GM/D5W 100ML - 100 ML IVPB IVPB ONE (22:02)
[2021-06-19] MEDS: ZOLPIDEM TARTRATE 5 MG TABLET PO PRN (01:00)
[2021-06-19] MEDS: HEPARIN NA (PORCINE) 5,000 UNITS/ML 1ML VIAL SQ SCH ×3 (05:08→21:18)
[2021-06-19 08:05] LABS: INR 2.93 (0.83-1.09); PROTHROMBIN TIME (PATIENT) 34.1 SEC (9.7-13.0)
[2021-06-19 08:17] LABS: ALBUMIN 2.9 g/dl (3.4-5.0); BLOOD UREA NITROGEN 65.1 mg/dL (7-18); CREATININE 2.6 mg/dL (0.55-1.3)
[2021-06-19 08:19] LABS: BILIRUBIN,TOTAL 2.8 mg/dL (0.2-1); CALCIUM 8.7 mg/dL (8.5-10.1); TOT PROT 6.7 g/dl (6.4-8.2)
[2021-06-19 08:20] LABS: MAGNESIUM 2.2 mg/dL (1.8-2.4); PHOSPHOROUS 4.7 mg/dL (2.5-4.9)
[2021-06-19] MEDS ORDERED: cefTRIAXone SODIUM 1 GM VIAL ONE (09:23)
[2021-06-19] MEDS ORDERED: DEXTROSE 5%-WATER - 50 ML IVPB ONE (09:23)
[2021-06-19] MEDS: POLYETHYLENE GLYCOL (HEALTHYLAX) 3350 17 GM PACKET PO SCH (11:16)
[2021-06-19] MEDS: THIAMINE HCL 100 MG TABLET (FP) PO SCH (11:16)
[2021-06-19] MEDS: CEFTRIAXONE 1 GM in DEXTROSE 5%-WATER - 50 ML IVPB SCH (11:16)
[2021-06-19] MEDS: SERTRALINE HCL 50 MG TABLET (FP) PO SCH ×2 (11:17→21:19)
[2021-06-19] MEDS: FERROUS SO4 325 MG TABLET (FP) PO SCH (11:17)
[2021-06-19] MEDS: ASPIRIN 81 MG CHEWABLE TABLETS PO SCH (11:17)
[2021-06-19] MEDS: CARVEDILOL 3.125 MG TABLET (FP) PO SCH ×3 (11:17→21:19)
[2021-06-19] MEDS: MULTIVITAMINS (DAILY MVI) TABLET (FP) PO SCH (11:17)
[2021-06-19] MEDS: DOCUSATE SODIUM 100 MG CAPSULE (FP) PO SCH ×2 (11:17→11:21)
[2021-06-19] MEDS: FOLIC ACID 1 MG TABLET (FP) PO SCH (11:18)
[2021-06-19] MEDS: MILRINONE 20MG/100ML IVPB - 20,000 MCG/100 ML ML IVPB SCH (13:25)
[2021-06-20] MEDS: ZOLPIDEM TARTRATE 5 MG TABLET PO PRN (01:03)
[2021-06-20] MEDS: MILRINONE 20MG/100ML IVPB - 20,000 MCG/100 ML ML IVPB SCH ×2 (01:48→11:24)
[2021-06-20] MEDS: HEPARIN NA (PORCINE) 5,000 UNITS/ML 1ML VIAL SQ SCH ×3 (05:43→21:11)
[2021-06-20 07:18] LABS: BASO % 0.4 % (0-2.0); EOS % 1.3 % (0-4.5); HEMATOCRIT 35.7 % (35.4-49); MCH 23.5 pg (25.7-33.7); MCHC 30.8 g/dl (32.0-35.9); MEAN CELL VOLUME 76.3 fl (80-96); MEAN PLT VOLUME 8.7 fl (7.5-11.1); MONO % 7.4 % (3.8-10.2); NEUT % 74.9 % (42.8-82.8); PLATELET COUNT 150 10^3/uL (134-434); RBC 4.68 M/mm3 (4.00-5.60); RDW 21.1 % (11.9-15.9); WHITE BLOOD COUNT 7.3 K/mm3 (4.0-10.0)
[2021-06-20 07:34] LABS: CALCIUM 8.5 mg/dL (8.5-10.1)
[2021-06-20 07:35] LABS: ALBUMIN 2.7 g/dl (3.4-5.0); BLOOD UREA NITROGEN 56.3 mg/dL (7-18); MAGNESIUM 1.8 mg/dL (1.8-2.4)
[2021-06-20 07:38] LABS: CREATININE 1.6 mg/dL (0.55-1.3); PHOSPHOROUS 3.4 mg/dL (2.5-4.9)
[2021-06-20 07:40] LABS: BILIRUBIN,TOTAL 2.6 mg/dL (0.2-1); TOT PROT 6.1 g/dl (6.4-8.2)
[2021-06-20] MEDS ORDERED: cefTRIAXone SODIUM 1 GM VIAL ONE (08:12)
[2021-06-20] MEDS ORDERED: DEXTROSE 5%-WATER - 50 ML IVPB ONE (08:13)
[2021-06-20 08:53] LABS: ANISOCYTOSIS 3+; MACROCYTOSIS 0; PLATELET ESTIMATE DECREASED; TARGET CELLS 1+
[2021-06-20] MEDS ORDERED: FUROSEMIDE 40 MG/4 ML INJECTABLE VIAL IVPUSH ONE (10:45)
[2021-06-20] MEDS: THIAMINE HCL 100 MG TABLET (FP) PO SCH (11:23)
[2021-06-20] MEDS: ASPIRIN 81 MG CHEWABLE TABLETS PO SCH (11:23)
[2021-06-20] MEDS: CEFTRIAXONE 1 GM in DEXTROSE 5%-WATER - 50 ML IVPB SCH (11:23)
[2021-06-20] MEDS: SERTRALINE HCL 50 MG TABLET (FP) PO SCH ×2 (11:23→21:11)
[2021-06-20] MEDS: DOCUSATE SODIUM 100 MG CAPSULE (FP) PO SCH (11:24)
[2021-06-20] MEDS: CARVEDILOL 3.125 MG TABLET (FP) PO SCH ×2 (11:24→21:11)
[2021-06-20] MEDS: FERROUS SO4 325 MG TABLET (FP) PO SCH (11:24)
[2021-06-20] MEDS: FOLIC ACID 1 MG TABLET (FP) PO SCH (11:24)
[2021-06-20] MEDS: POLYETHYLENE GLYCOL (HEALTHYLAX) 3350 17 GM PACKET PO SCH (11:24)
[2021-06-20] MEDS: MULTIVITAMINS (DAILY MVI) TABLET (FP) PO SCH (11:24)
[2021-06-20] MEDS: NEOMYCIN/POLYMYXIN/BACITRACIN (TRIPLE ANTIBIOTIC) 28 GM OINTMENT TP SCH (21:11)
[2021-06-21] MEDS: ZOLPIDEM TARTRATE 5 MG TABLET PO PRN ×2 (01:06→23:28)
[2021-06-21] MEDS: HEPARIN NA (PORCINE) 5,000 UNITS/ML 1ML VIAL SQ SCH ×2 (05:21→14:37)
[2021-06-21] MEDS: NEOMYCIN/POLYMYXIN/BACITRACIN (TRIPLE ANTIBIOTIC) 28 GM OINTMENT TP SCH ×3 (05:22→22:21)
[2021-06-21 07:46] LABS: HEMATOCRIT 34.6 % (35.4-49); HEMOGLOBIN 10.9 GM/dL (11.7-16.9); MCH 23.7 pg (25.7-33.7); MCHC 31.4 g/dl (32.0-35.9); MEAN CELL VOLUME 75.6 fl (80-96); MEAN PLT VOLUME 8.5 fl (7.5-11.1); PLATELET COUNT 148 10^3/uL (134-434); RBC 4.58 M/mm3 (4.00-5.60); RDW 20.8 % (11.9-15.9)
[2021-06-21 07:50] LABS: ALBUMIN 2.6 g/dl (3.4-5.0); BLOOD UREA NITROGEN 36.8 mg/dL (7-18); CALCIUM 8.1 mg/dL (8.5-10.1); MAGNESIUM 1.5 mg/dL (1.8-2.4)
[2021-06-21 07:53] LABS: PHOSPHOROUS 2.6 mg/dL (2.5-4.9)
[2021-06-21 07:55] LABS: BILIRUBIN,TOTAL 2.6 mg/dL (0.2-1); TOT PROT 5.9 g/dl (6.4-8.2)
[2021-06-21] MEDS ORDERED: cefTRIAXone SODIUM 1 GM VIAL ONE (08:51)
[2021-06-21] MEDS ORDERED: DEXTROSE 5%-WATER - 50 ML IVPB ONE (08:52)
[2021-06-21] MEDS ORDERED: MAGNESIUM 1GM/D5W 100ML - 100 ML IVPB IVPB ONE (10:32)
[2021-06-21] MEDS ORDERED: POTASSIUM CHLORIDE TABS 20 MEQ TABLET.ER (FP) PO ONE ×2 (10:32→18:00)
[2021-06-21 11:07] LABS: ANTIGLOMERULAR BASEMENT MEN.AB 4 units (0-20)
[2021-06-21] MEDS: SERTRALINE HCL 50 MG TABLET (FP) PO SCH ×2 (11:15→22:21)
[2021-06-21] MEDS: DOCUSATE SODIUM 100 MG CAPSULE (FP) PO SCH (11:15)
[2021-06-21] MEDS: CEFTRIAXONE 1 GM in DEXTROSE 5%-WATER - 50 ML IVPB SCH (11:16)
[2021-06-21] MEDS: THIAMINE HCL 100 MG TABLET (FP) PO SCH (11:16)
[2021-06-21] MEDS: MILRINONE 20MG/100ML IVPB - 20,000 MCG/100 ML ML IVPB SCH (11:16)
[2021-06-21] MEDS: FOLIC ACID 1 MG TABLET (FP) PO SCH (11:16)
[2021-06-21] MEDS: CARVEDILOL 3.125 MG TABLET (FP) PO SCH ×2 (11:16→22:21)
[2021-06-21] MEDS: FERROUS SO4 325 MG TABLET (FP) PO SCH (11:16)
[2021-06-21] MEDS: POLYETHYLENE GLYCOL (HEALTHYLAX) 3350 17 GM PACKET PO SCH (11:16)
[2021-06-21] MEDS: MULTIVITAMINS (DAILY MVI) TABLET (FP) PO SCH (11:16)
[2021-06-22] MEDS: MILRINONE 20MG/100ML IVPB - 20,000 MCG/100 ML ML IVPB SCH ×2 (05:06→23:36)
[2021-06-22] MEDS: NEOMYCIN/POLYMYXIN/BACITRACIN (TRIPLE ANTIBIOTIC) 28 GM OINTMENT TP SCH ×3 (05:06→22:00)
[2021-06-22 07:51] LABS: CALCIUM 8.5 mg/dL (8.5-10.1)
[2021-06-22 07:52] LABS: ALBUMIN 2.8 g/dl (3.4-5.0); BLOOD UREA NITROGEN 26.8 mg/dL (7-18); MAGNESIUM 1.7 mg/dL (1.8-2.4)
[2021-06-22 07:54] LABS: PHOSPHOROUS 2.5 mg/dL (2.5-4.9)
[2021-06-22 07:56] LABS: BILIRUBIN,TOTAL 2.7 mg/dL (0.2-1); TOT PROT 6.6 g/dl (6.4-8.2)
[2021-06-22] MEDS ORDERED: cefTRIAXone SODIUM 1 GM VIAL ONE (09:28)
[2021-06-22] MEDS ORDERED: DEXTROSE 5%-WATER - 50 ML IVPB ONE (09:29)
[2021-06-22] MEDS: SERTRALINE HCL 50 MG TABLET (FP) PO SCH ×2 (10:12→21:47)
[2021-06-22] MEDS: THIAMINE HCL 100 MG TABLET (FP) PO SCH (10:12)
[2021-06-22] MEDS: MULTIVITAMINS (DAILY MVI) TABLET (FP) PO SCH (10:12)
[2021-06-22] MEDS: FERROUS SO4 325 MG TABLET (FP) PO SCH (10:12)
[2021-06-22] MEDS: DOCUSATE SODIUM 100 MG CAPSULE (FP) PO SCH (10:12)
[2021-06-22] MEDS: SPIRONOLACTONE 25 MG TABLET PO SCH (10:13)
[2021-06-22] MEDS: CARVEDILOL 3.125 MG TABLET (FP) PO SCH ×2 (10:13→21:47)
[2021-06-22] MEDS: POLYETHYLENE GLYCOL (HEALTHYLAX) 3350 17 GM PACKET PO SCH (10:13)
[2021-06-22] MEDS: CEFTRIAXONE 1 GM in DEXTROSE 5%-WATER - 50 ML IVPB SCH (10:13)
[2021-06-22] MEDS: FOLIC ACID 1 MG TABLET (FP) PO SCH (10:14)
[2021-06-22] MEDS ORDERED: MAGNESIUM OXIDE 400 MG TABLET (FP) PO ONE (10:59)
[2021-06-22 11:17] LABS: INR 1.8 (0.83-1.09); PROTHROMBIN TIME (PATIENT) 20.8 SEC (9.7-13.0)
[2021-06-22 11:20] LABS: ACTIVATED PTT 34.9 SECONDS (25.2-36.5)
[2021-06-22 17:06] LABS: ATYPICAL pANCA <1:20 titer (Neg:<1:20); C-ANCA <1:20 titer (Neg:<1:20)
[2021-06-22 19:27] LABS: BF WBC & OTHER NUCLEATED CELLS 325 /mm3
[2021-06-22 19:57] LABS: BODY FLUID MACROPHAGES 58 %; BODY FLUID MESOTHELIAL 9 %
[2021-06-22] MEDS: ZOLPIDEM TARTRATE 5 MG TABLET PO PRN (23:37)
[2021-06-23] MEDS: NEOMYCIN/POLYMYXIN/BACITRACIN (TRIPLE ANTIBIOTIC) 28 GM OINTMENT TP SCH ×3 (05:52→21:07)
[2021-06-23 08:31] LABS: HEMATOCRIT 34.5 % (35.4-49); HEMOGLOBIN 10.7 GM/dL (11.7-16.9); MCH 23.5 pg (25.7-33.7); MCHC 31.1 g/dl (32.0-35.9); MEAN CELL VOLUME 75.6 fl (80-96); MEAN PLT VOLUME 8.5 fl (7.5-11.1); PLATELET COUNT 142 10^3/uL (134-434); RBC 4.57 M/mm3 (4.00-5.60); RDW 21.3 % (11.9-15.9); WHITE BLOOD COUNT 6.5 K/mm3 (4.0-10.0)
[2021-06-23 09:07] LABS: CALCIUM 8.5 mg/dL (8.5-10.1)
[2021-06-23 09:08] LABS: ALBUMIN 2.8 g/dl (3.4-5.0); MAGNESIUM 1.8 mg/dL (1.8-2.4)
[2021-06-23 09:11] LABS: BILIRUBIN,TOTAL 2.8 mg/dL (0.2-1); CREATININE 0.9 mg/dL (0.55-1.3); PHOSPHOROUS 2.4 mg/dL (2.5-4.9); TOT PROT 6.5 g/dl (6.4-8.2)
[2021-06-23] MEDS ORDERED: cefTRIAXone SODIUM 1 GM VIAL ONE (09:17)
[2021-06-23] MEDS ORDERED: DEXTROSE 5%-WATER - 50 ML IVPB ONE (09:17)
[2021-06-23] MEDS: CEFTRIAXONE 1 GM in DEXTROSE 5%-WATER - 50 ML IVPB SCH (09:19)
[2021-06-23] MEDS: FERROUS SO4 325 MG TABLET (FP) PO SCH (09:20)
[2021-06-23] MEDS: SPIRONOLACTONE 25 MG TABLET PO SCH (09:20)
[2021-06-23] MEDS: SERTRALINE HCL 50 MG TABLET (FP) PO SCH ×2 (09:20→21:04)
[2021-06-23] MEDS: POLYETHYLENE GLYCOL (HEALTHYLAX) 3350 17 GM PACKET PO SCH (09:20)
[2021-06-23] MEDS: DOCUSATE SODIUM 100 MG CAPSULE (FP) PO SCH ×2 (09:21→09:50)
[2021-06-23] MEDS: FOLIC ACID 1 MG TABLET (FP) PO SCH (09:21)
[2021-06-23] MEDS: ASPIRIN 81 MG CHEWABLE TABLETS PO SCH (09:21)
[2021-06-23] MEDS: CARVEDILOL 3.125 MG TABLET (FP) PO SCH ×2 (09:21→21:03)
[2021-06-23] MEDS: THIAMINE HCL 100 MG TABLET (FP) PO SCH (09:21)
[2021-06-23] MEDS: MULTIVITAMINS (DAILY MVI) TABLET (FP) PO SCH (09:21)
[2021-06-23] MEDS ORDERED: MAGNESIUM OXIDE 400 MG TABLET (FP) PO ONE (10:15)
[2021-06-23] MEDS ORDERED: POTASSIUM CHLORIDE TABS 20 MEQ TABLET.ER (FP) PO ONE (10:15)
[2021-06-23] MEDS ORDERED: FUROSEMIDE 40 MG/4 ML INJECTABLE VIAL IVPUSH ONE (11:15)
[2021-06-23] MEDS ORDERED: MILRINONE 20MG/100ML IVPB - 20,000 MCG/100 ML ML IVPB SCH (11:45)
[2021-06-23] MEDS: SACUBITRIL/VALSARTAN 24 MG-26 MG TABLET PO SCH (21:30)
[2021-06-23] MEDS: ZOLPIDEM TARTRATE 5 MG TABLET PO PRN (23:25)
[2021-06-24] MEDS: NEOMYCIN/POLYMYXIN/BACITRACIN (TRIPLE ANTIBIOTIC) 28 GM OINTMENT TP SCH ×2 (06:34→15:15)
[2021-06-24 07:24] LABS: BASO % 1.1 % (0-2.0); EOS % 2.1 % (0-4.5); HEMATOCRIT 33.7 % (35.4-49); HEMOGLOBIN 10.8 GM/dL (11.7-16.9); LYMPH % 21.4 % (8-40); MCH 24.1 pg (25.7-33.7); MEAN CELL VOLUME 75.4 fl (80-96); MEAN PLT VOLUME 8.4 fl (7.5-11.1); MONO % 10.7 % (3.8-10.2); NEUT % 64.7 % (42.8-82.8); PLATELET COUNT 116 10^3/uL (134-434); RBC 4.46 M/mm3 (4.00-5.60); WHITE BLOOD COUNT 6.2 K/mm3 (4.0-10.0)
[2021-06-24 08:05] LABS: ALBUMIN 2.6 g/dl (3.4-5.0); BLOOD UREA NITROGEN 19.1 mg/dL (7-18); CALCIUM 8.6 mg/dL (8.5-10.1); MAGNESIUM 1.8 mg/dL (1.8-2.4)
[2021-06-24] MEDS ORDERED: MAGNESIUM OXIDE 400 MG TABLET (FP) PO ONE (08:06)
[2021-06-24] MEDS ORDERED: POTASSIUM CHLORIDE TABS 20 MEQ TABLET.ER (FP) PO ONE (08:06)
[2021-06-24 08:07] LABS: CREATININE 0.9 mg/dL (0.55-1.3); PHOSPHOROUS 2.7 mg/dL (2.5-4.9)
[2021-06-24 08:08] LABS: BILIRUBIN,TOTAL 2.8 mg/dL (0.2-1); TOT PROT 6.1 g/dl (6.4-8.2)
[2021-06-24 08:52] LABS: ANISOCYTOSIS 2+; MACROCYTOSIS 1+; PLATELET ESTIMATE DECREASED
[2021-06-24] MEDS: SERTRALINE HCL 50 MG TABLET (FP) PO SCH ×2 (10:43→21:43)
[2021-06-24] MEDS: SACUBITRIL/VALSARTAN 24 MG-26 MG TABLET PO SCH ×2 (10:43→21:44)
[2021-06-24] MEDS: FERROUS SO4 325 MG TABLET (FP) PO SCH (10:43)
[2021-06-24] MEDS: ASPIRIN 81 MG CHEWABLE TABLETS PO SCH (10:43)
[2021-06-24] MEDS: CARVEDILOL 3.125 MG TABLET (FP) PO SCH ×2 (10:44→21:49)
[2021-06-24] MEDS: DOCUSATE SODIUM 100 MG CAPSULE (FP) PO SCH (10:44)
[2021-06-24] MEDS: SPIRONOLACTONE 25 MG TABLET PO SCH (10:44)
[2021-06-24] MEDS: MULTIVITAMINS (DAILY MVI) TABLET (FP) PO SCH (10:45)
[2021-06-24] MEDS: THIAMINE HCL 100 MG TABLET (FP) PO SCH (10:45)
[2021-06-24] MEDS: POLYETHYLENE GLYCOL (HEALTHYLAX) 3350 17 GM PACKET PO SCH (10:45)
[2021-06-24] MEDS: FOLIC ACID 1 MG TABLET (FP) PO SCH (10:45)
[2021-06-24] MEDS ORDERED: ZOLPIDEM TARTRATE 5 MG TABLET PO PRN (21:00)
[2021-06-24 22:28] VITALS: TEMP 97.9
[2021-06-25] MEDS: NEOMYCIN/POLYMYXIN/BACITRACIN (TRIPLE ANTIBIOTIC) 28 GM OINTMENT TP SCH ×3 (07:00→13:23)
[2021-06-25 08:42] LABS: HEMOGLOBIN 11.5 GM/dL (11.7-16.9); MCH 23.6 pg (25.7-33.7); MCHC 30.3 g/dl (32.0-35.9); MEAN CELL VOLUME 77.8 fl (80-96); MEAN PLT VOLUME 8.7 fl (7.5-11.1); PLATELET COUNT 152 10^3/uL (134-434); RBC 4.89 M/mm3 (4.00-5.60); RDW 21.3 % (11.9-15.9); WHITE BLOOD COUNT 8.1 K/mm3 (4.0-10.0)
[2021-06-25 09:12] LABS: ALBUMIN 2.6 g/dl (3.4-5.0); BLOOD UREA NITROGEN 18.3 mg/dL (7-18); CALCIUM 8.3 mg/dL (8.5-10.1); MAGNESIUM 1.8 mg/dL (1.8-2.4)
[2021-06-25 09:15] LABS: CREATININE 0.9 mg/dL (0.55-1.3); PHOSPHOROUS 2.6 mg/dL (2.5-4.9)
[2021-06-25 09:18] LABS: BILIRUBIN,TOTAL 2.5 mg/dL (0.2-1); TOT PROT 6.4 g/dl (6.4-8.2)
[2021-06-25] MEDS ORDERED: MAGNESIUM OXIDE 400 MG TABLET (FP) PO ONE (10:00)
[2021-06-25] MEDS ORDERED: POTASSIUM CHLORIDE TABS 20 MEQ TABLET.ER (FP) PO ONE (10:00)
[2021-06-25] MEDS: SPIRONOLACTONE 25 MG TABLET PO SCH (10:39)
[2021-06-25] MEDS: FERROUS SO4 325 MG TABLET (FP) PO SCH (10:39)
[2021-06-25] MEDS: SERTRALINE HCL 50 MG TABLET (FP) PO SCH (10:39)
[2021-06-25] MEDS: MULTIVITAMINS (DAILY MVI) TABLET (FP) PO SCH (10:39)
[2021-06-25] MEDS: CARVEDILOL 3.125 MG TABLET (FP) PO SCH (10:39)
[2021-06-25] MEDS: THIAMINE HCL 100 MG TABLET (FP) PO SCH (10:40)
[2021-06-25] MEDS: ASPIRIN 81 MG CHEWABLE TABLETS PO SCH (10:40)
[2021-06-25] MEDS: SACUBITRIL/VALSARTAN 24 MG-26 MG TABLET PO SCH (10:46)
[2021-06-25] MEDS: FOLIC ACID 1 MG TABLET (FP) PO SCH (10:48)
[2021-06-25] MEDS: POLYETHYLENE GLYCOL (HEALTHYLAX) 3350 17 GM PACKET PO SCH (10:52)
[2021-06-25] MEDS: DOCUSATE SODIUM 100 MG CAPSULE (FP) PO SCH (10:52)
[2021-06-25 15:08] LABS: BODY FLUID ALBUMIN 1.4 g/dL (Not Estab.)
[2021-06-25 15:46] VITALS: PULSE 82
[2021-06-25 17:15] VITALS: BP 90/58
== END 2021-06-25 18:33 | disposition home or self-care (01) | DRG 291 ==
LOC: JER 11:45 → JERBED 15:33 → J4W 06-15 21:10
PROVIDERS: ADMIT Internal Medicine
PROC: 0W9G3ZZ Drainage of Peritoneal Cavity, Percutaneous Approach (ICD-10-PCS; principal; 2021-06-22)
DX: I13.0 Hypertensive heart and chronic kidney disease with heart failure and stage 1 through stage 4 chronic kidney disease, or unspecified chronic kidney disease (principal); I50.23 Acute on chronic systolic (congestive) heart failure; K76.7 Hepatorenal syndrome; N17.9 Acute kidney failure, unspecified; I24.9 Acute ischemic heart disease, unspecified; R18.8 Other ascites; F10.239 Alcohol dependence with withdrawal, unspecified; E87.1 Hypo-osmolality and hyponatremia; I24.8 Other forms of acute ischemic heart disease; J81.1 Chronic pulmonary edema; I47.1 Supraventricular tachycardia; I42.6 Alcoholic cardiomyopathy; I42.0 Dilated cardiomyopathy; I95.9 Hypotension, unspecified; E88.09 Other disorders of plasma-protein metabolism, not elsewhere classified; F12.90 Cannabis use, unspecified, uncomplicated; I27.20 Pulmonary hypertension, unspecified; F39 Unspecified mood [affective] disorder; F19.10 Other psychoactive substance abuse, uncomplicated; K76.1 Chronic passive congestion of liver; D69.6 Thrombocytopenia, unspecified; Z68.31 Body mass index [BMI] 31.0-31.9, adult; R74.01 Elevation of levels of liver transaminase levels; Z91.14 Patient's other noncompliance with medication regimen; E87.70 Fluid overload, unspecified; F41.8 Other specified anxiety disorders; N18.9 Chronic kidney disease, unspecified
CPT/HCPCS: 36415; 71046-TC-FY; 74176-TC; 76775-TC; 76942-TC; 80048; 80053; 80061; 80076; 80307; 81003; 82042; 82150; 82465; 82550; 82553; 82570; 82728; 82945; 83516; 83520; 83540; 83550; 83615; 83735; 83880; 83986; 84100; 84155; 84157; 84165; 84300; 84478; 84484; 85025; 85027; 85610; 85730; 86038; 86225; 86256; 87070; 87075; 87102; 87116; 87205; 87206; 87210; 88108; 88305-TC; 93005; 93010; 93306-TC; 97116-GP; 97161-GP; 99285-25; C9803; J1250; J1644; U0003; U0005

== ENCOUNTER 2021-12-20 00:27 | Emergency (ER) | payer OTHER ==
[2021-12-20 01:02] VITALS: TEMP 97.1; BMI 20.9
[2021-12-20 02:05] LABS: BASO % 0.7 % (0-2.0); EOS % 1.3 % (0-4.5); HEMATOCRIT 41.5 % (35.4-49); HEMOGLOBIN 14.3 GM/dL (11.7-16.9); LYMPH % 28.3 % (8-40); MCH 29.2 pg (25.7-33.7); MCHC 34.3 g/dl (32.0-35.9); MEAN PLT VOLUME 7.1 fl (7.5-11.1); NEUT % 63.7 % (42.8-82.8); PLATELET COUNT 169 10^3/uL (134-434); RBC 4.89 M/mm3 (4.00-5.60); RDW 17.1 % (11.9-15.9)
[2021-12-20 02:24] LABS: ALBUMIN 3.9 g/dl (3.4-5.0); BLOOD UREA NITROGEN 17.9 mg/dL (7-18); MAGNESIUM 2.1 mg/dL (1.8-2.4)
[2021-12-20 02:27] LABS: CREATININE 0.9 mg/dL (0.55-1.3); PHOSPHOROUS 3.9 mg/dL (2.5-4.9)
[2021-12-20 02:29] LABS: TOT PROT 7.8 g/dl (6.4-8.2)
[2021-12-20 05:12] VITALS: BP 96/59; PULSE 70
== END 2021-12-20 05:12 | disposition home or self-care (01) ==
LOC: JER 00:27
DX: R55 Syncope and collapse (principal)
CPT/HCPCS: 36415; 71046-TC-FY; 80053; 83735; 84100; 84484; 85025; 93005; 93010; 99285-25